=== PATIENT | female | born 1995 | race American Indian/Alaskan Native ===

== ENCOUNTER 2016-11-13 19:24 | Emergency (ER) | payer OTHER, MEDICAID ==
[2016-11-13] MEDS ORDERED: BICILLIN L-A IM ONE (21:31)
[2016-11-13] MEDS ORDERED: MOTRIN PO ONE (21:31)
--- NOTE | 2016-11-13 21:44 | Emergency Department Report ---
ED ENT HPI - General Chief complaint: Sore Throat Stated complaint: STREP THROAT Time Seen by Provider: 11/13/16 21:21 Source: patient Mode of arrival: Ambulatory Limitations: No Limitations - History of Present Illness Initial comments: PT c/o sore throat x 2 days. PT state she does not have a hx of strep throat but she thinks she has strep throat. PT states she saw white spots on her tonsil. PT also complains that her whole body hurts. complaint: sore throat Onset/Timin -: Gradual, days(s) Location: throat Severity scale (0 -10): 9 Quality: constant Consistency: constant Improves with: none Worsens with: swallowing, eating Associated Symptoms: pain with swallowing, sore throat. denies: fever (pt denies having fever), cough, rhinorrhea - Related Data Previous Rx's Medication Instructions Recorded Last Taken Type Ibuprofen Oral Liqd [Motrin Oral 600 mg PO TID PRN #1 bottle 11/13/16 Unknown Rx Liq 100 mg/5 ml] Allergies Allergy/AdvReac Type Severity Reaction Status Date / Time No Known Allergies Allergy Verified 05/19/15 15:31 ED Dental HPI - General Chief complaint: Sore Throat Stated complaint: STREP THROAT Time Seen by Provider: 11/13/16 21:21 Source: patient Mode of arrival: Ambulatory Limitations: No Limitations - Related Data Previous Rx's Medication Instructions Recorded Last Taken Type Ibuprofen Oral Liqd [Motrin Oral 600 mg PO TID PRN #1 bottle 11/13/16 Unknown Rx Liq 100 mg/5 ml] Allergies Allergy/AdvReac Type Severity Reaction Status Date / Time No Known Allergies Allergy Verified 05/19/15 15:31 ED Review of Systems ROS: Stated complaint: STREP THROAT Other details as noted in HPI Comment: All other systems reviewed and negative Constitutional: fever, malaise, weakness (generalized ) ENT: as per HPI Cardiovascular: denies: chest pain Gastrointestinal: denies: abdominal pain, nausea, vomiting Genitourinary: denies: abnormal menses (lmp 1 week ago ) Musculoskeletal: myalgia ED Past Medical Hx - Past Medical History Previous Medical History?: Yes Additional medical history: coschochondrits - Surgical History Past Surgical History?: No - Social History Smoking Status: Never Smoker Substance Use Type: Alcohol - Medications Home Medications: Home Medications Medication Instructions Recorded Confirmed Last Taken Type Ibuprofen Oral Liqd [Motrin Oral 600 mg PO TID PRN #1 bottle 11/13/16 Unknown Rx Liq 100 mg/5 ml] ED Physical Exam - General Limitations: No Limitations General appearance: alert, in no apparent distress - Head Head exam: Present: atraumatic, normocephalic, normal inspection - Eye Eye exam: Present: normal appearance, PERRL, EOMI. Absent: conjunctival injection Pupils: Present: normal accommodation - ENT ENT exam: Present: mucous membranes moist, normal external ear exam. Absent: normal orophraynx - Expanded ENT Exam Expanded Ear exam: Present: normal external inspection. Absent: auricular hematoma, auricular trauma Mouth exam: Present: normal external inspection. Absent: drooling, trismus, muffled voice Throat exam: Positive: tonsillar erythema, tonsillomegaly, tonsillar exudate. Negative: R peritonsillar mass, L peritonsillar mass - Neck Neck exam: Present: normal inspection, tenderness, full ROM, lymphadenopathy - Respiratory Respiratory exam: Present: normal lung sounds bilaterally. Absent: respiratory distress, chest wall tenderness - Cardiovascular Cardiovascular Exam: Present: normal rhythm, tachycardia, normal heart sounds - GI/Abdominal GI/Abdominal exam: Present: soft. Absent: tenderness - Extremities Exam Extremities exam: Present: normal inspection, full ROM - Back Exam Back exam: Present: normal inspection, full ROM. Absent: tenderness, CVA tenderness (R), CVA tenderness (L) - Neurological Exam Neurological exam: Present: alert, oriented X3, normal gait - Psychiatric Psychiatric exam: Present: normal affect, normal mood - Skin Skin exam: Present: warm, dry, intact, normal color ED Course Vital Signs 11/13/16 11/13/16 11/13/16 20:19 21:03 21:57 Temperature 101.5 F H 101.5 F H 103.2 F H Pulse Rate 110 H 110 H Respiratory 22 18 Rate Blood Pressure 133/95 Blood Pressure 133/95 [Right] O2 Sat by Pulse 100 100 Oximetry 11/13/16 22:55 Temperature 100.8 F H Pulse Rate Respiratory Rate Blood Pressure Blood Pressure [Right] O2 Sat by Pulse Oximetry - Reevaluation(s) Reevaluation #1: 11/13/16 21:45 PT's rapid strep negative. Culture is pending, however, given the pt's presentation 1. fever 2. exudative pharyngitis 3 cervical adenopathy will empirically treat for strep. pharyngitis. PT aware of plan. PT did not know that she had a fever. Will treat with Motrin and Tylenol Reevaluation #2: 11/13/16 22:56 PT states she is feeling better. PT tolerating po fluids without difficulty - Pulse Oximetry Interpretation Digit-Finger Initial Pulse Oximetry Readin Actions Taken: none ED Medical Decision Making - Differential Diagnosis viral illness, strep pharyngitis Critical care attestation.: If time is entered above; I have spent that time in minutes in the direct care of this critically ill patient, excluding procedure time. ED Disposition Clinical Impression: Exudative pharyngitis Fever Qualifiers: Fever type: unspecified Qualified Code(s): R50.9 - Fever, unspecified Disposition: - TO HOME OR SELFCARE Is pt being admited?: No Does the pt Need Aspirin: No Condition: Stable Instructions: Strep Throat (ED), Fever in Adults (ED) Additional Instructions: Your clinical exam is suggestive of Strep Throat The antibiotic shot that you received today in the ED should be the only antibiotics that you need Strep throat is contagious - if your son have sore throat or fevers- he will need to be seen Wash all your dishes and utensils and change your toothbrush If you can not control your fever, you are unable to open your mouth, or you are drooling - return to the ED Prescriptions: Ibuprofen Oral Liqd [Motrin Oral Liq 100 mg/5 ml] 600 mg PO TID PRN #1 bottle PRN Reason: Fever Referrals: NATALIE HUANG MD [Staff Physician] - 3-5 Days Time of Disposition: 22:56
[2016-11-13] MEDS ORDERED: TYLENOL PO ONE (21:46)
[2016-11-13 23:31] VITALS: BP 116/80
== END 2016-11-13 23:31 | disposition home or self-care (01) ==
LOC: ED 19:24
DX: J02.9 Acute pharyngitis, unspecified (principal); R50.9 Fever, unspecified
CPT/HCPCS: 87116; 87430; 96372; 99283; J0561